=== PATIENT | female | born 1995 | race Caucasian/White ===

== ENCOUNTER 2019-12-10 10:16 | Emergency (ER) | payer OTHER ==
[~2019-12-10] VITALS: Ht 154.9 cm; Wt 50.0 kg
[2019-12-10 10:24] VITALS: Ht 154.9 cm; Wt 50.0 kg
[2019-12-10 10:45] LABS: HEMATOCRIT 39.7 % (36.0-48.0); HEMOGLOBIN 12.7 g/dL (12-16); MCH 28.1 pg (26.0-34.0); MCV 87.8 fL (80.0-100.0); MEAN PLATELET VOLUME 10.9 fL (7.4-10.4); NEUTROPHILS 53.5 % (40-80); PLATELET COUNT 152 10x3/uL (130-400); RBC 4.52 10x6/uL (4.00-5.40); RDW 15.1 % (11.5-14.5); WBC 4.6 10x3/uL (4.8-10.8)
[2019-12-10 10:57] LABS: CALC OSMOLALITY 279 mosm/kg (275-300); CALCIUM 8.8 mg/dL (8.5-10.1); CARBON DIOXIDE 27.5 mmol/L (21.0-32.0); CHLORIDE - SERUM 105 mmol/L (98-107); CREATININE - SERUM 0.8 mg/dL (0.6-1.3); GLUCOSE 83 mg/dL (74-106); POTASSIUM - SERUM 3.4 mmol/L (3.5-5.1); SODIUM 141 mmol/L (136-145); UREA NITROGEN 13 mg/dL (7-18); eGFR NON AFRICAN AMERICAN > 90 mL/min (90-120)
[2019-12-10 11:05] LABS: ALBUMIN 3.9 g/dL (3.4-5.0); ALKALINE PHOSPHATASE 94 U/L (30-120); ALT (SGPT) 21 U/L (10-68); AMYLASE - SERUM 54 U/L (25-115); BILIRUBIN - TOTAL 0.35 mg/dL (0.2-1.3); LIPASE 100 U/L (73-393); PROTEIN - SERUM 7.9 g/dL (6.4-8.2)
[2019-12-10 11:06] LABS: HCG URINE NEGATIVE (NEGATIVE)
[2019-12-10 11:07] LABS: TROPONIN-I < 0.017 ng/mL (0.000-0.060)
[2019-12-10 11:24] LABS: SPECIFIC GRAVITY 1.025 (1.005-1.020)
[2019-12-10 11:28] LABS: AMORPHOUS SEDIMENT >1+ /lpf (NONE SEEN); BACTERIA FEW /hpf (NEGATIVE); BILIRUBIN NEGATIVE (NEGATIVE); EPITHELIAL CELLS 0-5 /hpf (0-5); GLUCOSE NEGATIVE (NEGATIVE); KETONE NEGATIVE (NEGATIVE); NITRITE NEGATIVE (NEGATIVE); RED CELLS - URINE OCC /hpf (0-5); WHITE CELLS - URINE NSEEN /hpf (NEGATIVE)
[2019-12-10] MEDS ORDERED: PREDNISONE20 MG PO (12:56)
[2019-12-10 13:06] VITALS: BP 111/62
== END 2019-12-10 13:06 | disposition home or self-care (01) ==
LOC: D.ER 10:16
PROVIDERS: Family Medicine
DX: K50.90 Crohn's disease, unspecified, without complications (principal); R19.7 Diarrhea, unspecified; K92.1 Melena